=== PATIENT | male | born 2005 | race Caucasian/White ===

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

== ENCOUNTER 2025-05-10 03:13 | Emergency (ER) | payer SELFPAY ==
[2025-05-10 03:14] VITALS: BP 138/87; PULSE 78; RESP 18; TEMP 36.4; O2SAT 99
--- NOTE | 2025-05-10 03:43 | EKG12_ITS ---
Test Reason : DYSRHYTHMIA Blood Pressure : */* mmHG Vent. Rate : 73 BPM Atrial Rate : 73 BPM P-R Int : 150 ms QRS Dur : 86 ms QT Int : 376 ms P-R-T Axes : 67 89 44 degrees QTcB Int : 414 ms Normal sinus rhythm Normal ECG Confirmed by RANULFO FARLEY, ARNALDO ([id number]), telegraph editor SHAI MONTAGUE ([id number]) on 05/11/2025 9:07:46 AM Referred By: Confirmed By: ARNALDO WINCHESTER MD
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
--- NOTE | 2025-05-10 03:47 | CT_ITS ---
PROCEDURE: BRAIN/HEAD WITHOUT CONTRAST 05/10/2025 REASON FOR EXAM: LEFT SIDED PARESTHESIAS TECHNIQUE: Procedure Code: CTBR Modality: CT Procedure: BRAIN/HEAD WITHOUT CONTRAST Coronal and Sagittal reconstruction series were provided. One or more dose reduction techniques were used (e.g., Automated exposure control, adjustment of the mA and/or kV according to patient size, use of iterative reconstruction technique. RADIATION DOSE SUMMARY: CTDlvol: 44.9 mGy DLP: 812 mGycm COMPARISON: CT scan on 10/18/2019. FINDINGS: Normal size of the ventricles and extra-axial spaces for the patient's age. Normal white matter tracts of the supratentorial brain. Normal basal ganglia and thalami. Normal brainstem. Normal cerebellum. There is no demonstrated extra-axial, intraparenchymal, or intraventricular hemorrhage. There are no findings of an acute ischemic infarction. Normal calvarium. There is no demonstrated fracture. Normal soft tissue structures. Normal visualized paranasal sinuses. CT/Brain/Head without Contrast IMPRESSION: No CT evidence of an acute brain abnormality. Reading Location[facility]
[2025-05-10] MEDS: 0.9% Normal Saline (1000mL) 1,000 ML 1000 ML IV (03:55)
[2025-05-10 03:56] LABS: Hematocrit 47.0 % (40-54); Hemoglobin 16.0 g/dL (13.0-16.5); Immature Granulocytes Count 0.010 X10^3/uL (0.0-0.0); Mean Corp Hgb Conc 34.0 g/dL (32-36); Mean Corpuscular Volume 91.1 fL (80-94); Mean Platelet Vol. 10.0 fl (6.2-12.0); NRBC Flagged by Analyzer 0 % (0-5); Platelet Count 228 K/mm3 (150-450); RBC Distribution Width CV 13.2 % (11.6-14.6); RBC Distribution Width SD 44.9 fl (35.1-43.9); Red Blood Count 5.16 M/mm3 (4.6-6.2); White Blood Count 5.8 K/mm3 (4.4-11.0)
--- NOTE | 2025-05-10 04:10 | RAD_ITS ---
PROCEDURE: CHEST PA AND LATERAL 05/10/2025 REASON FOR EXAM: CHEST PAIN TECHNIQUE: Procedure Code: RADCXR Modality: DX Procedure: CHEST PA AND LATERAL COMPARISON: None. FINDINGS: The lungs are expanded. There is no demonstrated parenchymal abnormality. There is no demonstrated pleural abnormality. Normal heart and pericardium. Normal mediastinum and noemi. Normal visualized pulmonary arteries. Normal visualized aortic arch and descending thoracic aorta. Normal visualized thoracic spine. Normal visualized ribs, clavicles, and shoulders. There is no demonstrated abnormality of the visualized soft tissue structures of the upper abdomen. RAD/Chest PA and Lateral IMPRESSION: No evidence for acute abnormality. Reading Location: [facility]
[2025-05-10 04:11] LABS: Internal QC Validated? YES +Cl - CLEAR BKGD; Record Kit Lot#, Mono 16251077
[2025-05-10 04:27] VITALS: BP 118/79; BP 118/82; BP 119/71; PULSE 70; PULSE 74
[2025-05-10 05:14] VITALS: BP 114/72; PULSE 76; RESP 18; O2SAT 100
[2025-05-10 05:23] LABS: AST(SGOT) 38 U/L (<=37); Alanine Aminotransfer ALT/SGPT 35 U/L (<=46); Albumin, Serum 4.9 g/dL (3.5-5.0); Alkaline Phosphatase 72 U/L (40-129); Anion Gap 14 (5-15); BUN 10 mg/dL (4-19); BUN/Creat Ratio 11.1 RATIO (10-20); Calcium,Total 9.4 mg/dL (7.6-11.0); Carbon Dioxide 24.6 mmol/L (21.0-32.0); Chloride 105 mmol/L (98-108); Globulin 2.5 g/dL (2.2-4.2); Glucose 118 mg/dL (70-99); Magnesium 2.7 mg/dL (1.5-2.2); Potassium 4.2 mmol/L (3.3-5.1)
[2025-05-10 05:37] LABS: CPK Total, Creatine Kinase 980 U/L (24-195)
[2025-05-10] MEDS: 0.9% Normal Saline (1000mL) 1,000 ML 999 ML IV (05:59)
[2025-05-10 07:00] VITALS: BP 120/64; PULSE 80; RESP 16; TEMP 36.6; O2SAT 100
== END 2025-05-10 07:04 | disposition home or self-care (01) ==
PROVIDERS: Emergency Provider Emergency Medicine; Visit Provider Emergency Medicine
DX: M62.82 Rhabdomyolysis (principal); H53.8 Other visual disturbances; F17.290 Nicotine dependence, other tobacco product, uncomplicated
CPT/HCPCS: 70450; 71046; 80053; 82550; 83735; 84443; 85025; 86308; 93005; 96361; 96374; 99285; A4216

== ENCOUNTER → 2025-06-20 | Outpatient (CLI) | payer MEDICAID, SELFPAY ==
[2025-06-20 17:14] LABS: Hematocrit 45.1 % (40-54); Hemoglobin 14.9 g/dL (13.0-16.5); Immature Granulocytes Count 0.010 X10^3/uL (0.0-0.0); Mean Corp Hgb Conc 33.0 g/dL (32-36); Mean Corpuscular Volume 91.7 fL (80-94); Mean Platelet Vol. 10.6 fl (6.2-12.0); NRBC Flagged by Analyzer 0 % (0-5); Platelet Count 217 K/mm3 (150-450); RBC Distribution Width CV 13.3 % (11.6-14.6); RBC Distribution Width SD 45.2 fl (35.1-43.9); Red Blood Count 4.92 M/mm3 (4.6-6.2); White Blood Count 6.3 K/mm3 (4.4-11.0)
[2025-06-20 17:19] LABS: CPK Total, Creatine Kinase 85 U/L (24-195)
[2025-06-20 17:21] LABS: AST(SGOT) 22 U/L (<=37); Alanine Aminotransfer ALT/SGPT 33 U/L (<=46); Albumin, Serum 4.8 g/dL (3.5-5.0); Alkaline Phosphatase 63 U/L (40-129); Anion Gap 11 (5-15); BUN 12 mg/dL (4-19); BUN/Creat Ratio 14.6 RATIO (10-20); CRP < 3.00 mg/L (0.0-3.0); Calcium,Total 9.5 mg/dL (7.6-11.0); Carbon Dioxide 23.5 mmol/L (21.0-32.0); Chloride 106 mmol/L (98-108); Globulin 2.5 g/dL (2.2-4.2); Glucose 95 mg/dL (70-99); Magnesium 2.3 mg/dL (1.5-2.2); Potassium 4.3 mmol/L (3.3-5.1); Uric Acid 5.3 mg/dL (3.5-7.2)
[2025-06-22 14:08] LABS: ANTINUCLEAR ANTIBODIES DIRECT Negative (Negative)
== END | disposition home or self-care (01) ==
LOC: LAB 16:03
PROVIDERS: PCP Nurse Practitioner Family; Referring Provider Nurse Practitioner Family; Visit Provider Nurse Practitioner Family
DX: H53.9 Unspecified visual disturbance (principal)
CPT/HCPCS: 86225; 36415; 80053; 82550; 83036; 83735; 84443; 84550; 85025; 85652; 86038; 86140; 86235; 86431

== ENCOUNTER 2025-07-07 10:47 | Emergency (ER) | payer MEDICAID, SELFPAY ==
[2025-07-07 10:48] VITALS: BP 145/67; PULSE 106; RESP 16; TEMP 36.6; O2SAT 98; BMI 21.8
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
--- NOTE | 2025-07-07 11:24 | EX.ED.DYSGE1 ---
HPI History of Present Illness Chief Complaint: General Illness Detail of Chief Complaint: Left upper extremity locked up Informant: patient Onset/Context/Timing Onset: Today and Hours Context: Sudden Onset Timing: Intermittent and Lasts (5 minutes) Quality: Upper extremity locked up Location: Right upper extremity Current Severity: Gone Maximum Severity: Severe Worsened by: Nothing Relieved by: Nothing Associated Symptoms Associated Symptoms: Discomfort went down to his right hip region as well Narrative Narrative: Patient is a 20-year-old male. He has history of sciatica, rhabdomyolysis who presents because he reports that his right upper extremity locked up. Presently has no symptoms. He is very vague when asked questions. He responded that he has weakness on the posterior right side of his neck when asked if he had any neck pain. He did not endorse neck pain. He did not endorse paresthesia or anesthesia of any extremity. He had no cardiac or respiratory symptoms. He presently has no symptoms. Patient mumbled something regarding being pulled over by the police. When asked why he admitted he was speeding. He states he braked but was still pulled over. He denies headache. He denies double vision, blurred vision loss of vision. [place] trouble with speech or. He denied spasms of any other extremity or discomfort in any other extremity. Prior similar symptoms: No Recent Illness/Hospitalization: No PFSH PFSH Medical History Rhabdomyolysis Non-smoker Home Medications Medication Instructions Recorded Last Taken Type NK 07/07/25 Unknown History Allergy/AdvReac Type Severity Reaction Status Date / Time No Known Allergies Allergy Verified 07/07/25 10:54 Family History Mother SLE (systemic lupus erythematosus) Sjogren syndrome Aunt Diabetes Heart disease Social History adopted: No household members: family number of children: 0 current occupational status: unemployed pets and animals: No sexually active: No Smoking Status: Current every day smoker tobacco type: cigars and e-cigarettes Tobacco: How many years used: 3 alcohol intake: current alcohol intake frequency: holidays/special occasions only substance use type: marijuana caffeine: No frequency: daily do you feel safe at home: Yes ROS ROS ED Constitutional Constitutional ED: Denies chills, fever(s), subjective, sweats or weight loss Eyes Eyes: Denies blurry vision, change in vision or diplopia ENT ENT ED: Denies ear pain, rhinorrhea or sore throat Cardiovascular Cardiovascular: Denies chest pain or palpitations Respiratory/Chest Respiratory/Chest: Denies cough or dyspnea Musculoskeletal Musculoskeletal: Reports myalgias; Denies arthralgias, back pain or neck pain Integumentary Denies rash Neurologic Neurologic: Reports other Details: Detailed HPI narrative ; Denies headache(s), paresthesias or weakness EXAM Physical Exam Const Vital Signs: 07/07/25 10:48 Temperature 97.9 F Temperature Source Oral Pulse Rate 106 H Respiratory Rate 16 Blood Pressure 145/67 H Blood Pressure Mean 93 Pulse Ox 98 Oxygen Delivery Method Room Air Positive well nourished and well developed Constitutional Narrative: He appears in no distress. Blood pressure and heart rate is elevated. General Appearance ED: well developed; Negative for pallor HEENT Reports moist mucous membranes HEENT Narrative: Head is atraumatic and normocephalic. Ears are normal. Nares are patent. Eyes PERRL and EOMs intact bilaterally Eyes Narrative: There is no nystagmus. General Eye ED: Negative for pale conjunctiva or scleral icterus Neck no lymphadenopathy, supple and no JVD General: Negative for tenderness Resp normal respiratory effort and clear to auscultation bilaterally Cardio regular rate, regular rhythm, S1 normal heart sound, S2 normal heart sound and no murmurs Extremity normal to inspection Extremity Narrative: Axillary, median, radial and ulnar nerve function intact. Radial pulses 2+. Bicep, brachialis and tricep reflex are 2+ and symmetric. General Extremety ED: Negative for edema or tenderness General Extremity: Negative for edema Neuro oriented x3, CN's II-XII intact bilaterally and no sensory deficits noted Neuro Narrative: There is no clonus at the ankles. There is no dysmetria. Sensorium / Orientation: alert Motor Exam: strength 5/5 throughout Psych Psych Narrative: Affect is flat. Skin no rashes or lesions noted, no wounds and skin turgor normal General Skin Exam: elasticity normal; Negative for jaundice or pallor MDM MDM MDM Narrative Medical decision making narrative: Will obtain a basic metabolic panel to assess for sodium, potassium and calcium. Otherwise uncertain what may be the cause of his arm/right upper extremity locking up. This could be due to electrolyte abnormality, idiopathic muscle spasm, malingering. Lab Data Attestation: I reviewed the patient's lab results. Lab results narrative: Basic metabolic panel with slight elevation in glucose otherwise unremarkable. This would not explain patient's symptoms. Labs: Laboratory Results - last 24 hr 07/07/25 11:02 Sodium 141 Potassium 4.2 Chloride 105 Carbon Dioxide 26.0 Anion Gap 11 BUN 18 Creatinine 0.99 Estim Creat Clear Calc 102.51 Est GFR (MDRD) Non-Af 111 BUN/Creatinine Ratio 18.0 Glucose 108 H Calcium 9.6 Discharge Plan Triage Chief Complaint: General Illness ED Provider: Pollo León Dx/Rx/DC Orders Clinical Impression: Encounter for medical screening examination, Pain of right upper extremity, Elevated blood-pressure reading without diagnosis of hypertension, Tachycardia Instructions: ED Hypertension, To Be Confirmed, ED Screening Exam Medical Nonurgent Prescriptions: No Action NK Primary Care Provider: Debbie Leach Referrals: Debbie Leach, [facility] [Primary Care Provider, Internal Medicine] - 1-2 Weeks Print Language: Croatian Disposition Disposition: Home, Self Care
[2025-07-07 12:12] LABS: Anion Gap 11 (5-15); BUN 18 mg/dL (4-19); BUN/Creat Ratio 18.0 RATIO (10-20); Calcium,Total 9.6 mg/dL (7.6-11.0); Carbon Dioxide 26.0 mmol/L (21.0-32.0); Chloride 105 mmol/L (98-108); Estimated Creatinine Clearance 102.51 ml/min (50-250); Glucose 108 mg/dL (70-99); Potassium 4.2 mmol/L (3.3-5.1)
[2025-07-07 12:29] VITALS: BP 118/75; PULSE 78; RESP 16; TEMP 36.6; O2SAT 100
== END 2025-07-07 12:32 | disposition home or self-care (01) ==
PROVIDERS: Emergency Provider Emergency Medicine; PCP Nurse Practitioner Family; Visit Provider Emergency Medicine
DX: M79.601 Pain in right arm (principal); R00.0 Tachycardia, unspecified; R03.0 Elevated blood-pressure reading, without diagnosis of hypertension; F17.290 Nicotine dependence, other tobacco product, uncomplicated
CPT/HCPCS: 80048; 99283

== ENCOUNTER 2025-07-21 10:23 | Emergency (ER) | payer MEDICAID, SELFPAY ==
[2025-07-21 10:23] VITALS: BP 134/88; PULSE 71; RESP 18; TEMP 36.3; O2SAT 98; BMI 23.8
== END 2025-07-21 12:25 | disposition left against medical advice (07) ==
LOC: ED 12:27
PROVIDERS: PCP Nurse Practitioner Family
DX: Z53.21 Procedure and treatment not carried out due to patient leaving prior to being seen by health care provider (principal)

== ENCOUNTER → 2025-07-21 | Outpatient (CLI) | payer MEDICAID, SELFPAY ==
--- NOTE | 2025-07-21 14:05 | RAD_ITS ---
PROCEDURE: HIPS B/L MIN 2 VIEWS W/ PELVIS 07/21/2025 REASON FOR EXAM: HIP PAIN TECHNIQUE: Procedure Code: [id number] Modality: DX Procedure: HIPS B/L MIN 2 VIEWS W/ PELVIS Laterality: Bilateral. COMPARISON: None. FINDINGS: Well-defined sclerotic lesion of the left femoral neck measuring 1.5 cm, probably bone island. There is a non-specific bowel gas pattern. Normal visualized soft tissue structures. Normal visualized sacrum, sacroiliac joints and bilateral iliac wings. Normal visualized bilateral superior and inferior pubic rami. Normal ischial tuberosities. Normal pubic symphysis. Normal visualized right femoral head. Normal right acetabulum. Normal right hip joint. Normal visualized left femoral head. Normal left acetabulum. Normal left hip joint. RAD/Hips B/L min 2 views w/ Pelvis IMPRESSION: No evidence for acute abnormality. Reading [facility]
--- NOTE | 2025-07-21 14:05 | RAD_ITS ---
PROCEDURE: L/S SPINE MIN 4 VIEWS 07/21/2025 REASON FOR EXAM: POSSIBLE SCOLIOSIS TECHNIQUE: Procedure Code: [id number] Modality: DX Procedure: L/S SPINE MIN 4 VIEWS INCLUDING OBLIQUE VIEWS COMPARISON: None FINDINGS: Vertebral body heights: Intact. Negative for fracture. Alignment: Intact. Normal. Oblique views negative. Disc spaces: Slight degenerative disc disease . Facet joints: Slight bilobed facet joint hypertrophy . Soft tissues: Adjacent soft tissues negative. Other: Moderate increasedamount of stool in the imaged colon. RAD/L/S Spine Min 4 Views IMPRESSION: Early degenerative changes lumbar spine. Constipation. Reading Location: [id number]
--- NOTE | 2025-07-21 14:05 | RAD_ITS ---
PROCEDURE: THORACIC SPINE 2 VIEWS 07/21/2025 REASON FOR EXAM: BACK PAIN TECHNIQUE: Procedure Code: [id number] Modality: DX Procedure: THORACIC SPINE 2 VIEWS FINDINGS: No acute thoracic fracture or subluxations. No acute soft tissue abnormalities. No radiographic foreign body. RAD/Thoracic Spine 2 Views IMPRESSION: No acute thoracic fracture or subluxations. Reading Location: [id number]
== END | disposition home or self-care (01) ==
LOC: RAD 13:57
PROVIDERS: PCP Nurse Practitioner Family; Referring Provider Nurse Practitioner Family; Visit Provider Nurse Practitioner Family
DX: M54.50 Low back pain, unspecified (principal); M54.6 Pain in thoracic spine; M25.551 Pain in right hip; M25.552 Pain in left hip
CPT/HCPCS: 72070; 72110; 73521